=== PATIENT | male | born 1995 | race Two or more races ===

== ENCOUNTER 2019-06-07 04:10 | Inpatient (IN) | payer BC, MEDICARE ==
[~2019-06-07] VITALS: Ht 167.6 cm; Wt 53.1 kg
[~2019-06-07 04:10] MED LIST: FLUO-191 PO
[2019-06-07 05:26] LABS: BASOPHILS % (AUTO) 0.3 % (0.0-2.0); EOSINOPHILS % (AUTO) 0.7 % (1.0-6.0); HEMATOCRIT 44.4 % (41-53); HEMOGLOBIN 14.7 g/dL (13.5-17.5); LYMPHOCYTES # (AUTO) 2.8 K/uL (1.0-4.8); LYMPHOCYTES % (AUTO) 21.2 % (22.0-44.0); MEAN CORPUSCULAR HEMOGLOBIN 31.7 pg (26.0-34.0); MEAN CORPUSCULAR HGB CONC 33.2 G/dL (31.0-37.0); MEAN CORPUSCULAR VOLUME 96 fL (80-100); MONOCYTES # (AUTO) 0.7 K/uL (0.1-1.0); NEUTROPHILS # (AUTO) 9.8 K/uL (1.8-7.7); NEUTROPHILS % (AUTO) 72.8 % (40.0-70.0); PLATELET COUNT (AUTO) 289 K/uL (150-450); RED BLOOD CELL COUNT(AUTO) 4.64 MIL/uL (4.50-5.90)
[2019-06-07 05:33] LABS: ANION GAP 13 mmol/L (8-16); CALCIUM, TOTAL 8.6 mg/dL (8.8-10.5); CARBON DIOXIDE 21 mmol/L (22-29); CHLORIDE 107 mmol/L (98-107); CREATININE 0.79 mg/dL (0.60-1.30); GLOMERULAR FILTR. RATE CALC > 60 mL/min (>60); GLUCOSE,RANDOM 88 mg/dL (70-110); POTASSIUM 3.3 mmol/L (3.5-5.1); SODIUM SERUM 141 mmol/L (136-145); UREA NITROGEN, BLOOD 6 mg/dL (7-18)
[2019-06-07 05:39] LABS: ALANINE AMINOTRANSFERASE 19 U/L (12-78); ALBUMIN 4.4 g/dL (3.4-5.0); ALKALINE PHOSPHATASE 68 U/L (46-116); ASPARTATE AMINOTRANSFERASE 27 U/L (15-37); BILIRUBIN,TOTAL 0.4 mg/dL (0.1-1.0); TOTAL PROTEIN, SERUM 7.9 g/dL (6.4-8.2)
[2019-06-07 06:13] LABS: AMPHET/METH SCREEN,URINE NEGATIVE (NEGATIVE); BARBITURATE SCREEN, URINE NEGATIVE (NEGATIVE); BENZODIAZEPINES SCREEN,URINE NEGATIVE (NEGATIVE); CANNABINOID SCREEN,URINE POSITIVE (NEGATIVE); COCAINE SCREEN,URINE NEGATIVE (NEGATIVE); METHADONE SCREEN, URINE NEGATIVE (NEGATIVE); OPIATE SCREEN,URINE NEGATIVE (NEGATIVE)
[2019-06-07] MEDS ORDERED: ACETAMINOPHEN 325 MG TABLET PO ONE (06:30)
[2019-06-07] MEDS ORDERED: HALOPERIDOL 5 MG TABLET PO PRN (06:30)
[2019-06-07 07:35] LABS: PHENCYCLIDINE SCREEN,URINE NEGATIVE (NEGATIVE)
[2019-06-07 10:02] VITALS: BP 106/70
[2019-06-07] MEDS ORDERED: BACITRACIN 28.4 GM OINTMENT TP PRN (10:30)
[2019-06-07] MEDS ORDERED: ONDANSETRON HCL 4 MG TABLET PO PRN (10:30)
[2019-06-07] MEDS ORDERED: LOPERAMIDE HCL 2 MG CAPSULE PO PRN (10:30)
[2019-06-07] MEDS ORDERED: MAGNESIUM HYDROXIDE SUSPENSION 30 ML UDCUP PO PRN (10:30)
[2019-06-07] MEDS ORDERED: ALBUTEROL SULFATE HFA 90 MCG/PUFF 8 GM INHALER IH PRN (10:30)
[2019-06-07] MEDS ORDERED: MAG HYDROX/AL HYDROX/SIMETH ES 30 ML SUSPENSION UDCUP PO PRN (10:30)
[2019-06-07] MEDS ORDERED: BENZOCAINE/MENTHOL LOZENGE MM PRN (10:30)
[2019-06-07] MEDS ORDERED: PETROLATUM,WHITE 28 GM JELLY TP PRN (10:30)
[2019-06-07] MEDS ORDERED: CloNIDine HCL 0.1 MG TABLET PO PRN (10:30)
[2019-06-07] MEDS ORDERED: IBUPROFEN 600 MG TABLET PO PRN (10:30)
[2019-06-07] MEDS ORDERED: OMEPRAZOLE 20 MG CAPSULE PO PRN (10:30)
[2019-06-07] MEDS ORDERED: ACETAMINOPHEN 325 MG TABLET PO PRN (10:30)
[2019-06-07] MEDS ORDERED: DOCUSATE SODIUM 100 MG CAPSULE PO PRN (10:30)
[2019-06-07 16:40] VITALS: BP 123/61
[2019-06-08 03:57] VITALS: BP 113/71
[2019-06-08] MEDS: LORazepam 2 MG TABLET PO PRN (04:02)
[2019-06-08 07:37] LABS: CHOL/HDL RATIO 2.9 (4.2-7.3)
[2019-06-08 08:00] VITALS: BP 116/63
[2019-06-08 17:46] VITALS: BP 115/57
[2019-06-08] MEDS: ZOLPIDEM TARTRATE 10 MG TABLET PO PRN (21:31)
[2019-06-09] MEDS: LORazepam 2 MG TABLET PO PRN (05:33)
[2019-06-09 05:34] VITALS: BP 118/60
[2019-06-09 14:45] VITALS: BP 123/90
[2019-06-09 16:19] VITALS: BP 124/74
[2019-06-09] MEDS: ZOLPIDEM TARTRATE 10 MG TABLET PO PRN (22:00)
[2019-06-10 04:03] VITALS: BP 110/64
[2019-06-10 08:00] VITALS: BP 118/83
== END 2019-06-10 13:35 | disposition home or self-care (01) | DRG 885 ==
LOC: EMS 04:12 → 3EX 07:06
PROVIDERS: ADMIT Psychiatry & Neurology Child & Adolescent Psychiatry; ATTEND Psychiatry & Neurology Child & Adolescent Psychiatry
DX: F25.9 Schizoaffective disorder, unspecified (principal); F41.9 Anxiety disorder, unspecified; F17.210 Nicotine dependence, cigarettes, uncomplicated; G47.00 Insomnia, unspecified; K59.00 Constipation, unspecified; F12.10 Cannabis abuse, uncomplicated
CPT/HCPCS: G0378; G0480